=== PATIENT | female | born 1950 | race Caucasian/White ===

== ENCOUNTER 2019-04-12 04:49 | Emergency (ER) | payer MEDICARE, OTHER, SELFPAY ==
[2019-04-12 04:50] VITALS: BP 147/128; PULSE 62; RESP 11; TEMP 36.6; O2SAT 97; BMI 32.6
--- NOTE | 2019-04-12 04:59 | RAD_ITS ---
STUDY: X-RAY CHEST REASON FOR EXAM: Female, 69 years old. Chest pain TECHNIQUE: PA and lateral views of the chest. COMPARISON: None. FINDINGS: Increased AP diameter of the thorax. Mild elevation of the right hemidiaphragm. Scarring or atelectasis in the left base and perihilar parenchyma. Areas of hyperinflation, possible bronchiectasis left lower lobe.. There is no focal parenchymal abnormality. There is no demonstrated pleural abnormality. Normal size heart. Normal mediastinum and dorota. Normal visualized pulmonary arteries. Normal visualized aortic arch and descending thoracic aorta. There is demineralization of the osseous structures. There is kyphosis and mild degenerative changes. No overt compression injury. Normal visualized ribs, clavicles, and shoulders. There is no demonstrated abnormality of the visualized soft tissue structures of the upper abdomen. RAD/Chest PA and Lateral IMPRESSION: Chronic-appearing interstitial lung disease. No pulmonary edema, congestive heart failure or confluent pneumonia. Other nonacute findings as outlined above. Electronically Signed: Karen Holley MD at 5:26 EDT , Service support ,
--- NOTE | 2019-04-12 04:59 | EKG12_ITS ---
Test Reason : CP Blood Pressure : / mmHG Vent. Rate : 061 BPM Atrial Rate : 061 BPM P-R Int : 198 ms QRS Dur : 080 ms QT Int : 418 ms P-R-T Axes : 033 -06 013 degrees QTc Int : 420 ms Sinus rhythm with marked sinus arrhythmia Otherwise normal ECG Confirmed by JOSLYN SORIANO, SHAVON ([id number]), editor managing newspaper SAWYER HERRON ([id number]) on 04/30/2019 2:07:00 PM Referred By: CARINA Confirmed By:SHAVON JORGENSEN MD
--- NOTE | 2019-04-12 05:00 | ED.VIS.GEN ---
History of Present Illness Chief Complaint: Chest Pain Informant: Patient Narrative: Presents with chest discomfort. Started on the right side it was sharp lasting 3 minutes when she woke up this morning. Started an hour ago. Is been gone since then. She also noticed she has some numbness in her right arm when she woke up. This went away as well soon after she woke up within 3 minutes. She has had this numbness intermittently when she wakes up prior. She does not think that is related to her sharp right-sided chest discomfort. She does have cardiac risk factors including hypertension high cholesterol. She does not smoke cigarettes. She did quit 30 years ago. Denies any family history of early coronary artery disease. Denies any PE or dissection risk factors other than hypertension which is controlled medication. No pain in her back. There is no pain in her right arm. She did take 2 baby aspirin. She had a nuclear stress test [place] that was negative per patient. This was greater than 5 years ago. She is never had a heart cath. She has no history of coronary artery disease. Denies any other symptoms. Past Medical History - Allergies and Home Meds Allergies/Adverse Reactions: Allergies codeine Adverse Reaction (Verified 04/12/19 04:49) Upset Stomach Primary Care Physician: Boni Carlson DO [Primary Care Provider] - Prior records reviewed: Yes Past Medical History: - - Reviewed Surgical History: - - Reviewed Lives: Spouse/ Significant Other Smoking Status: Former smoker Alcohol: None Drugs: None Review of Systems General: Denies: Chills, Fever, Sweats Eyes: Denies: Visual changes - bilaterally, Diplopia ENT: Denies: Rhinorrhea, Sore throat Cardiovascular: Reports: Chest pain. Denies: Palpitations Respiratory: Denies: Dyspnea, Cough, Dyspnea on exertion Gastrointestinal: Denies: Abdominal pain, Nausea, Vomiting, Diarrhea, Melena, Hematochezia Genitourinary: Denies: Dysuria, Hematuria, Frequency Musculoskeletal: Denies: Back pain, Extremity Pain Skin: Denies: Rash, Wounds Neurological: Reports: Parasthesia, Numbness. Denies: Headache, Weakness Physical Exam Vital Signs/Narrative: Vital Signs Temp Pulse Resp BP Pulse Ox 04/12/19 04:50 97.8 F 62 11 L 147/128 H 97 General: Well nourished, Well developed, No Acute Distress Head: Normocephalic, Atraumatic Eyes: Perrl, EOMI ENT: Moist mucous membranes, No rhinorrhea Neck: Supple, Nontender Cardiovascular: Regular rate, Regular rhythm, No murmurs Respiratory: No distress, CTA bilaterally, Chest nontender Abdomen: Soft, Nontender, Nondistended, Normal bowel sounds Back: Nontender, Normal Inspection Extremities: Nontender, No edema Skin: Normal color, No rash Neurological: Alert, Oriented x3, Cranial nerves II-XII grossly intact, Normal Strength, Normal Sensation Psychological: Normal affect, Normal Mood Diagnostic/Tx/Re-eval Impressions Chest X-Ray 04/12/19 04:59 IMPRESSION: Chronic-appearing interstitial lung disease. No pulmonary edema, congestive heart failure or confluent pneumonia. Other nonacute findings as outlined above. Electronically Signed: Karen Holley MD at 5:26 EDT , Service support , 04/12/19 04:59 Chest PA and Lateral [RAD] Stat Laboratory Results 04/12/19 04/12/19 04:57 04:57 WBC 13.7 H RBC 4.87 Hgb 16.5 H Hct 47.9 H MCV 98.4 MCH 33.9 H MCHC 34.4 RDW 12.4 RDW Differential 44.2 H Plt Count 394 MPV 8.8 Immature Gran % (Auto) 0.600 Neut % (Auto) 62.4 Lymph % (Auto) 27.1 [place] % (Auto) 8.5 Eos % (Auto) 1.2 Baso % (Auto) 0.2 Absolute Neuts (auto) 8.6 H Absolute Lymphs (auto) 3.71 Total Counted Not Reportable Sodium 140 Potassium 4.4 Chloride 106 Carbon Dioxide 25.0 Anion Gap 9 BUN 27 H Creatinine 0.98 Estim Creat Clear Calc 45.45 Est GFR (MDRD) Af Amer 73 Est GFR (MDRD) Non-Af 60 BUN/Creatinine Ratio 27.7 H Glucose 110 H Calcium 9.2 Troponin I < 0.015 - Medical Decision Making EKG shows sinus rhythm at a rate of 61. Positive sinus arrhythmia noted. T wave inversion in inferior lead III. No STEMI. Patient took aspirin. She is symptom-free. Lab work and chest x-ray obtained. Chest x-ray shows chronic changes nothing acute. Lab work shows mildly elevated BUN white count and hemoglobin. This could be related to mild dehydration. I discussed admission with the patient. She is moderate risk on the heart score. She declined this. She understands the risk of doing so. She would like to try a delta troponin evaluation. If negative she wants to be discharged to follow-up with her family doctor for outpatient evaluation and possible stress test. Have a low suspicion for pulmonary embolism or dissection. She will be signed out to the oncoming morning physician for further check. If negative she will be discharged. ED Disposition - Plan for ED Patient: Diagnosis: Chest pain at rest Instructions: CHEST PAIN, Uncertain Cause Referrals: Boni Carlson DO [Primary Care Provider] -
[2019-04-12 05:05] VITALS: O2SAT 96
[2019-04-12 05:06] LABS: Absolute Lymphocyte Count 3.71 X10^3/ul (0.83-4.51); Absolute Neutrophil Count 8.6 X10^3/uL (2.0-7.7); Basophil# 0.03 X10^3/uL; Basophil% 0.2 % (0-1); Eosinophil# 0.16 X10^3/uL; Eosinophils% 1.2 % (0-5); Hematocrit 47.9 % (37-47); Hemoglobin 16.5 g/dl (12.0-15.0); Lymphocyte # 3.71 X10^3/ul (4.0); Lymphocyte % 27.1 % (19-41); Mean Corp Hgb Conc 34.4 g/gl (32-36); Mean Corpuscular Hgb 33.9 pg (27.0-32.0); Mean Corpuscular Volume 98.4 fL (81-99); Mean Platelet Vol. 8.8 fl (6.2-12.0); Monocyte# 1.17 X10^3/uL; Monocyte% 8.5 % (0-10); Neutrophil # 8.55 X10^3/uL (2.7-7.7); Neutrophil % 62.4 % (47-70); Platelet Count 394 K/mm3 (150-450); RBC Distribution Width CV 12.4 % (11.6-14.6); RBC Distribution Width SD 44.2 fl (35.1-43.9); Red Blood Count 4.87 M/mm3 (4.2-5.4); White Blood Count 13.7 K/mm3 (4.4-11.0)
[2019-04-12 05:15] LABS: POSITIVE COUNT NO; POSITIVE DIFFERENTIAL NO; POSITIVE MORPHOLOGY NO
[2019-04-12 05:20] LABS: Anion Gap 9 (5-15); BUN 27 mg/dL (7-18); BUN/Creat Ratio 27.7 RATIO (10-20); Calcium,Total 9.2 mg/dL (8.5-10.1); Chloride 106 mmol/L (98-107); Creatinine, Serum 0.98 mg/dL (0.55-1.02); EST Glomerular Filtration Rate 60 mL/min (>60); Est Glom Filt Rate - Afr Amer 73 mL/min (>60); Estimated Creatinine Clearance 45.45 ml/min; Glucose 110 mg/dL (74-106); Potassium 4.4 mmol/L (3.5-5.1); Sodium Level 140 mmol/L (136-145)
[2019-04-12 05:51] VITALS: BP 135/72; PULSE 53; RESP 18; O2SAT 99
[2019-04-12 06:03] VITALS: BP 107/77; PULSE 50; RESP 18; O2SAT 94
[2019-04-12 07:15] VITALS: BP 151/88; PULSE 52; RESP 17; O2SAT 93
== END 2019-04-12 07:37 | disposition home or self-care (01) ==
LOC: ED 05:43
PROVIDERS: Emergency Provider Emergency Medicine; Family Provider Student in an Organized Health Care Education/Training Program; PCP Student in an Organized Health Care Education/Training Program
DX: R07.89 Other chest pain (principal); Z87.891 Personal history of nicotine dependence
CPT/HCPCS: 71046; 80048; 84484; 85025; 93005; 99284; A4216

== ENCOUNTER → 2019-05-22 | Outpatient (CLI) | payer MEDICARE, OTHER, SELFPAY ==
--- NOTE | 2019-05-22 12:39 | STEWCON_ITS ---
Reason For Study: Chest Pain Stress Results Protocol: Mc Protocol Maximum Predicted HR: 152 bpm Target HR: 129 bpm % Maximum Predicted HR: 85 % DurationHeart Rate Stage (mm:ss) (bpm) BP Comment Baseline 61 134/80No Chest Pain; 4 ML Diluted Definity Given Mc Protocol Stage I 3:00 103 140/72No Chest Pain Mc Protocol Stage II 3:00 102 164/70No Chest Pain Mc Protocol Stage III 3:00 129 178/72No Chest Pain Recovery 75 122/74No Chest Pain Stress Duration: 9:00 mm:ss Maximum Stress HR: 129 bpm METS: 10 Baseline Echocardiogram Findings Stress Echo Wall motion Data Resting WM Intermediate WM Stress WM Resting Wall Motion Wall Motion Stress All segments Normal. All segments Hyperkinetic. Ejection Fraction 60 %. Ejection Fraction 75 %. Stress Results Heart rate response: Appropriate Blood pressure response to exercise: Normal resting blood pressure-appropriate response Arrhythmias: Isolated PVC during exercise Functional capacity: Good Stopped secondary to: Dyspnea. EKG Data The baseline ECG displays normal sinus rhythm. Peak exercise ECG: No Obvious ECG Changes. Symptoms with Stress No complaint of chest discomfort during exercise or recovery. Interpretation Summary Negative (Adequate) Stress Echocardiogram Ordering Physician: Meghan Rangel Referring Physician: Eugene Marshall Performed By: Sameer Ware RCS
== END | disposition home or self-care (01) ==
LOC: CVS 12:37
PROVIDERS: Family Provider Student in an Organized Health Care Education/Training Program; PCP Student in an Organized Health Care Education/Training Program; Referring Provider Registered Nurse; Visit Provider Registered Nurse
DX: R07.9 Chest pain, unspecified (principal)
CPT/HCPCS: 93017; 93350; Q9957; A4216; C8928

== ENCOUNTER 2022-12-21 09:30 | Outpatient (RCR) | payer MEDICARE, OTHER, SELFPAY ==
--- NOTE | 2022-11-23 14:58 | HP.PTEVAL ---
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 Date of Evaluation: 11/23/22 Physical Therapist: Tavon Yap, PT, Cert MDT, OCS - Visit Plan Frequency: 2x /Week Duration: 4 Weeks Plan: PT INTERVETIONS MANUAL THERAPY STM UT/LEVATOR TRACTION ,CERVICAL /POSTURAL EX'S , AND MODLITIES - Subjective This 72 y/o female presents to physical therapy with cervical pain. Patient has had cervical pain many years. Patient was seeing orthopedic DR HUA did MRI showed stenosis/DDD ,mil/ bulging disc. Recommended pain management . Recommended PT and try muscle relaxers . Patient has had injections epidural in lumbar but none in cervical. Patient has paresthesia/tingling right arm. Aggravating factors turning neck ,lifting ,sitting occasional lifting OH. Alleviating factors Advil, rest . Symptoms affecting sleeping. Denies tinnitus/H A/nausea. Patient has prior PT for neck ,but has multiple times with PT in lumbar. Patient condition affects QOL and function as well job demands. H/O osteoporosis, and TKR -bilateral. SOCAIL: . VOCATION: part -time [employer] - Pain Bilateral Neck Pain Intensity (Out of 10): 3 Pain Intensity Range: 10 - Objective POSTURE: mod thoracic kyphosis. NEURO: denies paresthesia/tingling ,reflexes C5-6-7 2/3. PALPATION: tender UT/levator/scalene. BUE: AROM BUE WFL. CERVICAL ROM: flexion min ,lateral flexion /rotation mod ,extension mod loss ,flexion min loss. MMT: BUE 4/5 ,and 4-/5 - Special Tests C/S Radiculapathy - Left Upper limb tension test: Negative C/S Radiculapathy - Right Upper limb tension test: Negative C/S Radiculapathy - Left Spurlings: Negative C/S Radiculapathy - Right Spurlings: Negative C/S Radiculapathy - Left Cervical distraction: Negative C/S Radiculapathy - Right Cervical distraction: Negative C/S Radiculapathy - Left Relief test: Negative C/S Radiculapathy - Right Relief test: Negative Sharp Francis: Negative Vertebral Artery Test: Negative Alar Ligament Test: Negative - Balance/Special Test Scores Oswestry Neck Score: 21 - Goals Goal 1:: Patient to be I with HEP for neck Goal Time Frame: 4-6 Weeks Goal 2:: Patient to improve posture for ADL's 80 % of the time Goal Time Frame: 4-6 Weeks Goal 3:: Patient to improve cervical ROM for function of recovery to drive care. Goal Time Frame: 4-6 Weeks Goal 4:: Patient to improve neck oswestry score by 5 points or> to improve QOL and function Goal Time Frame: 4-6 Weeks Goal 5:: Patient to demonstrate 50% improvement with decrease symptoms and improved function Goal Time Frame: 4-6 Weeks - Rehabilitation Potential Physical Therapy Diagnosis: This patient has cervical pain with pain with positioning and movement without radicular symptoms affects QOL and daily function and MRI showed stenosis /DDD and disc bulges thus benefit from skilled PT Rehabilitation Potential: Good - Anticipated Interventions Patient/Client Instruction: Educate patient on: Condition, Plan of Care For the Purpose of:: To decrease pain, To increase ROM, To improve muscle performance and motor function, To improve ability to perform ADL's, To increase tolerance to activity/condition/position, To improve ability of physical actions for home/community/work/leisure, To improve health of tissue, To decrease soft tissue restriction, To increase flexibility/ROM, To prevent re-injury, To improve ability to perform tasks related to life management, To improve tolerance to ADL's Therapeutic Exercise to Include: Strength training, Postural training, Flexibilty training, Active ROM, Dynamic Lumbar Stabilization For the Purpose of:: To decrease pain, To increase ROM, To improve muscle performance and motor function, To improve ability to perform ADL's, To increase tolerance to activity/condition/position, To improve ability of physical actions for home/community/work/leisure, To improve health of tissue, To decrease soft tissue restriction, To prevent re-injury, To improve tolerance to ADL's Manual Therapy Techniques to Include: Mobilization, Soft tissue mobilization For the Purpose of:: To decrease pain, To increase ROM, To improve nutrient delivery to tissue, To improve ability of physical actions for home/community/work/leisure, To decrease soft tissue restriction, To increase flexibility/ROM, To prevent re-injury, To improve tolerance to ADL's TENS: Yes IF ES: Yes Thermo therapy (hot pack): Yes For the Purpose of:: To decrease pain, To increase ROM, To improve nutrient delivery to tissue, To increase oxygenation perfusion, To improve health of tissue, To decrease soft tissue restriction Thank you for the opportunity to evaluate your patient. For Medicare and Medicare HMO plans, please review the plan of care and approve it. It will need to be FAXED BACK to us at [phone] for Medicare purposes. For Medicare only, by signing this I certify the plan of care. Please let me know if there are questions or concerns regarding this plan of care. Physician Signature: Date:
--- NOTE | 2022-12-21 12:01 | HP.PTDCSUM_ITS ---
It has been my pleasure to treat FANG BREWER referred by RAKESH Pina, with the diagnosis of CERVICAL DISC DEGENERATION ,SPINAL STENOSIS CERVICAL REGION for a total of 9 visit(s). Discharge Date: Please see the following information for a summary of their discharge status. Subjective: Doing better Bilateral Neck Pain Intensity (Out of 10): 1 Objective/Function: POSTURE: mild forward posture. PALPATION: tender levator/scalene. AROM: WFL. MMT: BUE WFL. CERVICAL ROM Goal 1:: Patient to be I with HEP for neck Goal 2:: Patient to improve posture for ADL's 80 % of the time Goal 3:: Patient to improve cervical ROM for function of recovery to drive care. Goal 4:: Patient to improve neck oswestry score by 5 points or> to improve QOL and function Goal 5:: Patient to demonstrate 50% improvement with decrease symptoms and improved function Plan: D/C If there are questions or concerns regarding this patient's physical therapy, pl ease feel free to call me at [phone]. Thank you for the referral of this patient. Sincerely, Tavon Yap, PT, Cert MDT, OCS Balance/Gait/Functional tests - Balance/Special Test Scores Oswestry Neck Score: 4
== END 2022-12-21 19:00 | disposition home or self-care (01) ==
LOC: PT 09:30
PROVIDERS: PCP Student in an Organized Health Care Education/Training Program; Referring Provider Nurse Practitioner Family; Visit Provider Nurse Practitioner Family
DX: M50.30 Other cervical disc degeneration, unspecified cervical region (principal); M48.02 Spinal stenosis, cervical region; M47.812 Spondylosis without myelopathy or radiculopathy, cervical region
CPT/HCPCS: 97110; 97116; 97140; 97162

== ENCOUNTER 2023-02-21 23:24 | Emergency (ER) | payer MEDICARE, OTHER, SELFPAY ==
[2023-02-21 23:25] VITALS: BP 177/78; PULSE 67; RESP 14; TEMP 36.6; O2SAT 97; BMI 33.7
--- NOTE | 2023-02-22 00:34 | EX.ED.DYSGE1 ---
HPI History of Present Illness Chief Complaint: Bite Narrative Narrative: Patient is a 72-year-old female who states she took her cat to the vet today for treatment and they had to anesthetize her and afterwards she took her home and was allowing her to wake up. She states she was trying to provide the cat some treats and food and the cat was disoriented and it bit her in the left hand. She states she is right-hand dominant and believes her tetanus is up-to-date. She states that with the bite to the hand she is concerned that she may need antibiotics and secondary to this comes in for evaluation. PFSH PFSH Home Medications B Complex 1 tab PO DAILY 04/12/19 [History Last Taken Unknown] Biotin 1 tab PO DAILY 04/12/19 [History Last Taken Unknown] Vitamin D 21,000 iu PO DAILY 04/12/19 [History Last Taken Unknown] aspirin 81 mg chewable tablet 1 tab PO DAILY 04/12/19 [History Last Taken Unknown] cholecalciferol (vitamin D3) 50 mcg (2,000 unit) tablet 2,000 unit PO DAILY 04/12/19 [History Last Taken Unknown] coenzyme Q10 200 mg capsule 200 mg PO DAILY 04/12/19 [History Last Taken Unknown] estradiol 0.01% (0.1 mg/gram) vaginal cream 1 applicatio vaginal QWEEK 04/12/19 [History Last Taken Unknown] losartan 25 mg tablet 25 mg PO DAILY 04/12/19 [History Last Taken Unknown] simvastatin 40 mg tablet 40 mg PO QHS 04/12/19 [History Last Taken Unknown] amoxicillin 875 mg-potassium clavulanate 125 mg tablet 1 tab PO BID 10 days #20 tabs 02/22/23 [Rx Last Taken Unknown] Allergy/AdvReac Type Severity Reaction Status Date / Time codeine AdvReac Upset Verified 02/21/23 23:25 Stomach Social History Smoking Status: Former smoker ROS ROS ED Constitutional Constitutional ED: Denies chills or fever(s) ENT ENT ED: Denies sore throat Cardiovascular Cardiovascular: Denies chest pain Respiratory/Chest Respiratory/Chest: Denies cough or dyspnea Gastrointestinal Gastrointestinal: Denies abdominal pain, diarrhea, nausea or vomiting Genitourinary Genitourinary ED: Denies dysuria Musculoskeletal Musculoskeletal: Reports other Details: Positive left hand pain Integumentary Reports other Details: Positive cat bite ; Denies rash Neurologic Neurologic: Denies headache(s), paresthesias or weakness Hematologic/Lymphatic Hematologic/Lymphatic: Denies easy bleeding or easy bruising EXAM Physical Exam Const Vital Signs: 02/21/23 23:25 Temperature 98 F Temperature Source Temporal Pulse Rate 67 Respiratory Rate 14 Blood Pressure 177/78 H Blood Pressure Mean 111 Pulse Ox 97 Oxygen Delivery Method Room Air Positive well nourished and well developed General Appearance ED: well developed Eyes PERRL and EOMs intact bilaterally Neck supple Resp normal respiratory effort and clear to auscultation bilaterally Cardio regular rate and regular rhythm Extremity Extremity Narrative: Left upper extremity is neurovascularly intact; AIN/PIN are intact and normal. Patient has 7 small puncture parks to the dorsal aspect of her left hand near the first and second metacarpal. The wounds are clean dry and intact without foreign body bleeding or discharge or surrounding signs concerning for infectious process. No ligamentous or tendon injury noted. Remainder of the exam is normal Neuro oriented x3 and CN's II-XII intact bilaterally Sensorium / Orientation: alert Psych mental status grossly normal Skin Skin Narrative: Bites to the left hand as documented above MDM MDM MDM Narrative Medical decision making narrative: Patient presented to the ER slightly hypertensive otherwise afebrile. She was bitten by her own cat and as it is known and can be washed there is no need for rabies prophylaxis. She states her tetanus status was up-to-date so this was not provided either. At this time she has no bony deformity and full active range of motion and there is low concern for underlying fracture or ligamentous or tendon injury and patient states that the cat did not have any broken teeth after the bite indicating the chance for foreign body is low. Therefore there is no need for an x-ray at this time. Patient does not have overt signs of infection at this point but there is concern for developing down the road secondary to the multiple puncture wounds and therefore to be placed on Augmentin but is otherwise safe for discharge as there is no signs of systemic infection. History & Record Review Discussion w/independent historian: Patient and Significant other Discharge Plan Triage Chief Complaint: Bite ED Provider: Ton Scott Dx/Rx/DC Orders Clinical Impression: Cat bite of left hand, History of hypertension Instructions: ED Cat Bite Prescriptions: New amoxicillin-pot clavulanate 875-125 mg tablet 1 tab PO BID 10 Days Qty: 20 0RF No Action B Complex 1 tab PO DAILY simvastatin 40 MG tablet 40 mg PO QHS losartan 25 MG tablet 25 mg PO DAILY aspirin 81 MG tablet,chewable 1 tab PO DAILY estradiol 42.5 GM cream 1 applicatio vaginal QWEEK coenzyme Q10 200 MG capsule 200 mg PO DAILY cholecalciferol (vitamin D3) 2,000 UNIT tablet 2,000 unit PO DAILY Biotin 1 tab PO DAILY Vitamin D 21,000 iu PO DAILY Primary Care Provider: Boni Carlson Referrals: Boni Carlson, DO [Primary Care Provider] - Activity Restrictions/Additional Instructions: Please wash the area with soap and water and watch for the development of a fever over 100.4 worsening redness warmth or lymphangitic streaking. If you notice any of these changes or have any further concerns please return to the hospital for repeat evaluation. Disposition Disposition: Home, Self Care Discharge Date/Time: 02/22/23 01:04
[2023-02-22] MEDS: Amox/Clavulanate 875 MG Tablet PO (00:55)
== END 2023-02-22 01:04 | disposition home or self-care (01) ==
PROVIDERS: Emergency Provider Emergency Medicine; PCP Student in an Organized Health Care Education/Training Program; Visit Provider Emergency Medicine
DX: S61.452A Open bite of left hand, initial encounter (principal); Z87.891 Personal history of nicotine dependence; W55.01XA Bitten by cat, initial encounter
CPT/HCPCS: 99283